=== PATIENT | male | born 1985 | race Two or more races ===

== ENCOUNTER 2022-12-14 20:09 | Emergency (ER) | payer BC ==
[~2022-12-14] VITALS: Ht 170.2 cm; Wt 74.8 kg
== END 2022-12-15 01:38 | disposition home or self-care (01) ==
LOC: ER 20:09
DX: S01.521A Laceration with foreign body of lip, initial encounter (principal); Y93.55 Activity, bike riding; Y92.488 Other paved roadways as the place of occurrence of the external cause; V29.99XA Rider (driver) (passenger) of other motorcycle injured in unspecified traffic accident, initial encounter